=== PATIENT | male | born 1990 | race Caucasian/White ===

== ENCOUNTER 2018-03-23 10:11 | Emergency (ER) | payer SELFPAY ==
[~2018-03-23] VITALS: Ht 175.3 cm; Wt 74.8 kg
--- OUTSIDE RECORDS SUMMARY | 2018-03-23 10:19 | XMS REPORT ---
Author Christiano Do Organization [employer] Address Unknown Phone Unavailable Care Team Providers Care [employer] Piping Designer Name Role Phone Christiano Juares CP Unavailable Allergies No Known Allergies Problems Problem Type Condition Code Onset Dates Condition Status Problem Dietary counseling and surveillance Z71.3 Active Problem Other malaise R53.81 Active Problem Hyperlipidemia E78.5 Active Problem Allergic rhinitis J30.9 Active Problem Acne L70.9 Active Medications No Known Medications Results No Known Results Summary Purpose [employer] Submission
--- OUTSIDE RECORDS SUMMARY | 2018-03-23 10:19 | XMS REPORT ---
Author Christiano Do Organization [employer] Address Unknown Phone Unavailable Care Team Providers Care Healthcare Sales Representative Name Role Phone Christiano Juares CP Unavailable Allergies, Adverse Reactions, Alerts Substance Reaction Event Type N.K.D.A. Info Not Available Non Drug Allergy Problems Problem Type Condition Code Onset Dates Condition Status Assessment Allergic rhinitis J30.9 Active Assessment Dietary counseling and surveillance Z71.3 Active Assessment Other malaise R53.81 Active Assessment Acne L70.9 Active Problem Dietary counseling and surveillance Z71.3 Active Problem Other malaise R53.81 Active Problem Hyperlipidemia E78.5 Active Assessment Encounter for general adult medical examination without abnormal findings Z00.00 Active Assessment Hyperlipidemia E78.5 Active Problem Allergic rhinitis J30.9 Active Problem Acne L70.9 Active Medications No Known Medications Procedures Procedure Coding System Code Date COMP PROFILE CPT-4 76868 Mar 01, 2015 LIPID PROFILE CPT-4 26745 Mar 01, 2015 CBC CPT-4 55615 Mar 01, 2015 PREV MED SEREST 18 CPT-4 49619 Mar 01, 2015 Vital Signs Date/Time: Mar 01, 2015 Blood Pressure Systolic 128 mm Hg Height 65.5 in Weight 139 lbs BMI 22.78 Index Cardiac Monitoring Heart Rate 64 /min Blood Pressure Diastolic 80 mm Hg Results Name Result Date Reference Range Unit Abnormality Flag CBC Summary Purpose [employer] Submission
--- OUTSIDE RECORDS SUMMARY | 2018-03-23 10:19 | XMS REPORT ---
Author Christiano Do Organization [employer] Address Unknown Phone Unavailable Care Team Providers Care Controller Mechanic Name Role Phone Christiano Juares CP Unavailable Allergies, Adverse Reactions, Alerts Substance Reaction Event Type N.K.D.A. Info Not Available Non Drug Allergy Problems Problem Type Condition Code Onset Dates Condition Status Problem Allergic rhinitis 477.9 Active Problem Hyperlipidemia 272.4 Active Problem Acne 706.1 Active Assessment Open bite, right lower leg, initial encounter S81.851A Active Assessment Bitten by dog, initial encounter W54.0XXA Active Problem Dietary counseling and surveillance V65.3 Active Problem Other malaise and fatigue 780.79 Active Medications No Known Medications Procedures Procedure Coding System Code Date OFFICE VISITEST PT CPT-4 31800 Feb 01, 2015 Vital Signs Date/Time: Feb 01, 2015 Blood Pressure Systolic 116 mm Hg Height 66.5 in Weight 138 lbs BMI 21.94 Index Cardiac Monitoring Heart Rate 66 /min Blood Pressure Diastolic 76 mm Hg Results No Known Results Summary Purpose [employer] Submission
[2018-03-23] MEDS ORDERED: NS IV 1000 ML 1,000 ML IV SCH (10:45)
[2018-03-23] MEDS ORDERED: KETOROLAC 30 MG/ML VIAL IVP ONE (10:45)
--- NOTE | 2018-03-23 10:47 | ED EENT ---
History of Present Illness General Chief Complaint: Oral/Throat Problems Stated Complaint: STREP THROAT Nursing Triage Note: ARRIVED VIA AMB TO ROOM 06 WEARING A MASK. SENT OVER FROM [facility] WALKIN WITH A POSSIBLE TONSILAR ABSCESS. COMPLAINS OF SORETHROAT AND FEVER X2 DAYS. WAS GIVEN A SHOT OF PCN AT [facility] AND TOOK TYLENOL AT 0700 TODAY. Source: patient Exam Limitations: no limitations History of Present Illness Date Seen by Provider: Mar 23, 2018 Time Seen by Provider: 10:45 Initial Comments To ER per private vehicle from [facility] walk-in clinic with concern of possible peritonsillar abscess. Complains of sore throat and fever for 2 days. He was given a shot of steroids and penicillin at the walk-in clinic and sent here. He is here working from [employer] Timing/Duration: abrupt Severity: moderate Location: throat Associated Symptoms: sore throat Allergies and Home Medications Allergies Coded Allergies: No Known Drug Allergies (Unverified , 03/23/18) Home Medications No Active Prescriptions or Reported Meds Patient Home Medication List Home Medication List Reviewed: Yes Review of Systems Review of Systems Constitutional: see HPI, chills, fever Eyes: No Symptoms Reported Ears: No Symptoms Reported Nose: no symptoms reported Mouth: no symptoms reported Throat: see HPI, pain, swelling Respiratory: no symptoms reported Cardiovascular: no symptoms reported Musculoskeletal: no symptoms reported Past Wlmttwl-Rzonpz-Ukoixi Hx Patient Social History Alcohol Use: Denies Use Recreational Drug Use: No Smoking Status: Current Everyday Smoker Recent Foreign Travel: No Contact w/Someone Who Travel: No Recent Infectious Disease Expo: No Recent Hopitalizations: No Seasonal Allergies Seasonal Allergies: No Past Medical History Surgeries: No Respiratory: No Cardiac: No Neurological: No Genitourinary: No Gastrointestinal: No Musculoskeletal: No Endocrine: No HEENT: No Cancer: No Integumentary: No Physical Exam Vital Signs Vital Signs - First Documented 03/23/18 10:33 Temp 97.9 Pulse 110 Resp 18 B/P (MAP) 147/92 (110) Pulse Ox 97 O2 Delivery Room Air Height, Weight, BMI Height: 5'9.00" Weight: 165lbs. oz. 74.734196ia; BMI Method:Stated General Appearance: WD/WN, no apparent distress Eyes: bilateral eye normal inspection, bilateral eye PERRL, bilateral eye EOMI Ears: bilateral ear auricle normal, bilateral ear canal normal Mouth/Throat: normal mouth inspection, tonsillar exudate, tonsillar swelling, other (both tonsils are swollen and with a tremendous amount of exudate. The left soft palate just anterior to the left tonsil is very swollen which may represent peritonsillar abscess.) Neck: non-tender, full range of motion, lymphadenopathy (R), lymphadenopathy (L ) Respiratory: no respiratory distress, no accessory muscle use Gastrointestinal: normal bowel sounds, non tender Neurologic/Psychiatric: alert, normal mood/affect, oriented x 3 Skin: normal color, warm/dry Procedures/Interventions Progress Peritonsillar abscess drainage note: Region was sprayed with topical Hurricaine spray. Then the soft palate fold just anterior to the left tonsil was anesthetized with 0.25 mL of 2% lidocaine with epinephrine 1:100,000. A guarded at 1.5 cm 18-gauge needle was then inserted at various locations until the purulent material was encountered. About 0.5 mL was able to be aspirated and I was not able to find the rest of the purulent material. I then made an incision with a guarded 11 blade scalpel a 1 cm at the same location and was able to bluntly dissect with curved hemostats with return of bloody material but no obviously purulent.. Bleeding was easily controlled with suction and gargling [place].. Sample of material aspirated was sent to lab for culture. Progress/Results/Core Measures Results/Orders Lab Results Laboratory Tests Test 03/23/18 10:50 03/23/18 11:00 Range/Units White Blood Count 18.4 H 4.3-11.0 10^3/uL Red Blood Count 4.70 4.35-5.85 10^6/uL Hemoglobin 15.0 13.3-17.7 G/DL Hematocrit 44 40-54 % Mean Corpuscular Volume 93 80-99 FL Mean Corpuscular Hemoglobin 32 25-34 PG Mean Corpuscular Hemoglobin Concent 34 32-36 G/DL Red Cell Distribution Width 12.6 10.0-14.5 % Platelet Count 218 130-400 10^3/uL Mean Platelet Volume 9.9 7.4-10.4 FL Neutrophils (%) (Auto) 84 H 42-75 % Lymphocytes (%) (Auto) 5 L 12-44 % Monocytes (%) (Auto) 10 0-12 % Eosinophils (%) (Auto) 0 0-10 % Basophils (%) (Auto) 0 0-10 % Neutrophils # (Auto) 15.4 H 1.8-7.8 X 10^3 Lymphocytes # (Auto) 1.0 1.0-4.0 X 10^3 Monocytes # (Auto) 1.9 H 0.0-1.0 X 10^3 Eosinophils # (Auto) 0.1 0.0-0.3 10^3/uL Basophils # (Auto) 0.0 0.0-0.1 10^3/uL Neutrophils % (Manual) 77 % Lymphocytes % (Manual) 4 % Monocytes % (Manual) 10 % Eosinophils % (Manual) 1 % Band Neutrophils 8 % Hypersegmented Neutrophils MODERATE Toxic Granulation 1+ Dohle Bodies SLIGHT Blood Morphology Comment NORMAL Sodium Level 136 135-145 MMOL/L Potassium Level 4.3 3.6-5.0 MMOL/L Chloride Level 102 98-107 MMOL/L Carbon Dioxide Level 22 21-32 MMOL/L Anion Gap 12 5-14 MMOL/L Blood Urea Nitrogen 6 L 7-18 MG/DL Creatinine 0.83 0.60-1.30 MG/DL Estimat Glomerular Filtration Rate > 60 BUN/Creatinine Ratio 7 Glucose Level 108 H 70-105 MG/DL Lactic Acid Level 0.57 0.50-2.00 MMOL/L Calcium Level 9.8 8.5-10.1 MG/DL Corrected Calcium 9.7 8.5-10.1 MG/DL Total Bilirubin 0.7 0.1-1.0 MG/DL Aspartate Amino Transf (AST/SGOT) 22 5-34 U/L Alanine Aminotransferase (ALT/SGPT) 31 0-55 U/L Alkaline Phosphatase 92 40-136 U/L C-Reactive Protein High Sensitivity > 15.00 H 0.00-0.50 MG/DL Total Protein 7.9 6.4-8.2 GM/DL Albumin 4.1 3.2-4.5 GM/DL Monoscreen NEGATIVE NEGATIVE Group A Streptococcus Screen NEGATIVE NEGATIVE My Orders Orders - YVETTE WELSH APRN Ct Neck (Soft Tissue) W (03/23/18 10:40) Ketorolac Injection (Toradol Injection) (03/23/18 10:45) Ns Iv 1000 Ml (Sodium Chloride 0.9%) (03/23/18 10:45) Monotest (03/23/18 10:45) Rapid Strep A Screen (03/23/18 10:45) Lidocaine/Epi 2% 1:100,000 (Xylocaine/Ep (03/23/18 11:45) Cefuroxime Injection (Zinacef Injection) (03/23/18 11:45) Medications Given in ED Current Medications Medications Dose Ordered Sig/Rommel Route Start Time Stop Time Status Last Admin Dose Admin Iohexol 100 ml ONCE ONCE IV 03/23/18 11:45 03/23/18 11:46 DC 03/23/18 11:35 100 ML Ketorolac Tromethamine 15 mg ONCE ONCE IVP 03/23/18 10:45 03/23/18 10:46 DC 03/23/18 10:58 15 MG Lidocaine/ Epinephrine 20 ml ONCE ONCE INJ 03/23/18 11:45 03/23/18 11:46 DC 03/23/18 12:02 20 ML Sodium Chloride 100 ml ONCE ONCE IV 03/23/18 11:45 03/23/18 11:46 DC 03/23/18 11:36 80 ML Vital Signs/I&O 03/23/18 10:33 Temp 97.9 Pulse 110 Resp 18 B/P (MAP) 147/92 (110) Pulse Ox 97 O2 Delivery Room Air Blood Pressure Mean: 110 Departure Communication (Admissions) We'll give a dose of 1.5 g of Zinacef IV here. I did recommend admission. He states that he would need to go home and take care of a couple of things first. I suggested with him that he could sign out having refused admission to release us from liability should he go home and worsen. He agrees to sign this and he does promise that he'll return tomorrow morning for reevaluation. I'll prescribe steroids and oral Ceftin at home and pain medication. Impression Primary Impression: Tonsillar abscess Disposition: HOME, SELF-CARE Condition: Stable Departure-Patient Inst. Decision time for Depature: 12:14 Referrals: NO,LOCAL PHYSICIAN (PCP/Family) Primary Care Physician Patient Instructions: Peritonsillar Abscess, Adult (DC) Add. Discharge Instructions: 1. Return promptly to the emergency room for any increased swelling or other concerns. Continue to use Tylenol and Motrin for fever control. Take steroids as directed. Take pain medication as directed if needed and take the antibiotics as directed. Return here sometime tomorrow morning or early afternoon for recheck. All discharge instructions reviewed with patient and/or family. Voiced understanding. Scripts Hydrocodone/Acetaminophen (Evant 5-325 Tablet) 1 Each Tablet 1 EACH PO Q6H PRN for PAIN-MODERATE MDD 10, #10 TAB Prov: YVETTE WELSH APRN 03/23/18 Prednisone (Prednisone) 20 Mg Tab 40 MG PO DAILY, #8 TAB Prov: YVETTE WELSH APRN 03/23/18 Cefuroxime Axetil (Cefuroxime) 500 Mg Tablet 500 MG PO BID, #14 TAB Prov: YVETTE WELSH APRN 03/23/18 YVETTE WELSH APRN Mar 23, 2018 10:47
[2018-03-23 11:03] LABS: BASOPHILS % (AUTO) 0 % (0-10); EOSINOPHILS # (AUTO) 0.1 10^3/uL (0.0-0.3); EOSINOPHILS % (AUTO) 0 % (0-10); HEMATOCRIT 44 % (40-54); LYMPHOCYTES % (AUTO) 5 % (12-44); MEAN CORPUSCULAR HEMOGLOBIN 32 PG (25-34); MEAN CORPUSCULAR HGB CONC 34 G/DL (32-36); MEAN CORPUSCULAR VOLUME 93 FL (80-99); MEAN PLATELET VOLUME 9.9 FL (7.4-10.4); MONOCYTES # (AUTO) 1.9 X 10^3 (0.0-1.0); MONOCYTES % (AUTO) 10 % (0-12); NEUTROPHILS # (AUTO) 15.4 X 10^3 (1.8-7.8); NEUTROPHILS % (AUTO) 84 % (42-75); PLATELET COUNT 218 10^3/uL (130-400); RED CELL DISTRIBUTION WIDTH 12.6 % (10.0-14.5); WHITE BLOOD COUNT 18.4 10^3/uL (4.3-11.0)
[2018-03-23 11:24] LABS: ALANINE AMINOTRANSFERASE 31 U/L (0-55); ALBUMIN 4.1 GM/DL (3.2-4.5); ALKALINE PHOSPHATASE 92 U/L (40-136); BILIRUBIN,TOTAL 0.7 MG/DL (0.1-1.0); BUN/CREATININE RATIO 7; CALCIUM 9.8 MG/DL (8.5-10.1); CARBON DIOXIDE 22 MMOL/L (21-32); CHLORIDE 102 MMOL/L (98-107); CREATININE SERUM 0.83 MG/DL (0.60-1.30); GFR ESTIMATED > 60; GLUCOSE 108 MG/DL (70-105); POTASSIUM 4.3 MMOL/L (3.6-5.0); SODIUM 136 MMOL/L (135-145); TOTAL PROTEIN 7.9 GM/DL (6.4-8.2)
--- NOTE | 2018-03-23 11:44 | Diagnostic Imaging Report ---
PROCEDURE: CT neck soft tissue with contrast. TECHNIQUE: Multiple contiguous axial images were obtained through the neck after the administration of contrast. INDICATION: History of strep throat with difficulty swallowing. FINDINGS: There is tonsillar abscess along the left pharyngeal tonsil with two hypodense fluid collections largest measuring approximately 2 cm slightly smaller one measuring approximately 1.5 cm. These measure approximately 2 cm superior to inferior. The tonsils do abut each other in the midline. No evidence of abscess on the right though there is enlargement of the tonsil with heterogeneous appearance with contrast. Epiglottis appears normal. Larynx is normal. Thyroid and cricoid cartilage are normal. The nasopharynx and parapharyngeal tissue planes are well-preserved. There is good opacification of the cervical vessels following IV contrast. There are multiple enlarged cervical chain lymph nodes bilaterally. Largest at the angle of mandible bilaterally measure approximately 2 cm and reside anterior to the carotid artery and the sternocleidomastoid muscle. The parotid glands and submandibular glands appear normal. There is mucosal thickening in the maxillary sinuses bilaterally. There are no bony lesions demonstrated. IMPRESSION: 1. Finding consistent with a tonsillar abscess on the left with diffuse heterogeneous enlarged tonsils noted on the right. 2. Diffuse cervical chain adenopathy bilaterally likely secondary to inflammatory changes though followup is indicated. Dictated by: Dictated on workstation # [id number]
[2018-03-23] MEDS ORDERED: CEFUROXIME INJECTION 1,500 MG in NS (IVPB) 50 ML IV ONE (11:45)
[2018-03-23] MEDS ORDERED: LIDOCAINE/EPI 2% 1:100,00 (XYLOCAINE) 20 ML VIAL INJ ONE (11:45)
[2018-03-23] MEDS ORDERED: IOHEXOL 350 MG/ML 100 ML (OMNIPAQUE 350) VIAL IV ONE (11:45)
[2018-03-23] MEDS ORDERED: NS 100 ML (IVPB) BAG IV ONE (11:45)
[2018-03-23 11:52] LABS: BAND NEUTROPHILS 8 %; EOSINOPHILS % (MANUAL) 1 %; HYPERSEGMENTED NEUT MODERATE; LYMPHOCYTES % (MANUAL) 4 %; MONOCYTES % (MANUAL) 10 %; NEUTROPHILS % (MANUAL) 77 %; RBC MORPH NORMAL
[2018-03-23 11:53] LABS: TOXIC GRANULATION/VACUOLAZATIO 1+
[2018-03-23] MEDS ORDERED: HYDR-4226 PO (12:15)
[2018-03-23] MEDS ORDERED: PRD20T PO (12:15)
[2018-03-23] MEDS ORDERED: CEFU500T63 PO (12:15)
[2018-03-23 13:30] VITALS: BP 133/83
== END 2018-03-23 13:30 | disposition home or self-care (01) ==
LOC: ER 10:13
DX: J39.0 Retropharyngeal and parapharyngeal abscess (principal); F17.200 Nicotine dependence, unspecified, uncomplicated
CPT/HCPCS: 36415; 70491; 80053; 83605; 85007; 85027; 86141; 86308; 87040; 87070; 87077; 87205; 87430